=== PATIENT | male | born 1945 | race Caucasian/White ===

== ENCOUNTER 2018-05-11 14:13 | Emergency (ER) | payer SELFPAY ==
[~2018-05-11] VITALS: Ht 175.3 cm; Wt 90.7 kg
--- NOTE | 2018-05-11 14:25 | NUR ---
PATIENT CAME FROM HOME C/O SYNCOPAL EPISODE, WITH CHANGE IN LOC APPROX. 1 MIN. PATIENT A/OX4, BREATHING EVEN AND UNLABORED, NO SOB NOTED, CAME IN WITH LEFT HAND G18 HL. NEEDS ATTENDED, AWAITING FOR MD ZAMBRANO.
[2018-05-11] MEDS ORDERED: IV NS 0.9% 1,000 ML BAG IV ONE ×2 (14:30→16:30)
[2018-05-11 14:38] LABS: BASOPHILS # (AUTO) 0.1 /CMM (0.0-0.2); BASOPHILS % (AUTO) 0.9 % (0.0-2.0); EOSINOPHILS % (AUTO) 2.7 % (0.0-6.0); HEMATOCRIT 39 % (39-51); HEMOGLOBIN 13.2 g/dL (13.5-17.5); LYMPHOCYTES # (AUTO) 1.4 /CMM (0.8-4.8); LYMPHOCYTES % (AUTO) 21.7 % (20.0-44.0); MEAN CORPUSCULAR HGB CONC 34 g/dl (31.0-36.0); MEAN CORPUSCULAR VOLUME 91 fL (80-96); MONOCYTES # (AUTO) 0.6 /CMM (0.1-1.30); MONOCYTES % (AUTO) 9.7 % (2.0-12.0); NEUTROPHILS # (AUTO) 4.3 /CMM (1.8-8.9); PLATELET COUNT (AUTO) 217 /CMM (150-450); RED BLOOD CELL COUNT(AUTO) 4.29 MIL/uL (4.5-6.0); WHITE BLOOD COUNT (AUTO) 6.6 K/uL (4.3-11.0)
[2018-05-11 14:52] LABS: ALCOHOL, BLOOD < 3 mg/dL (0-0)
[2018-05-11 14:53] LABS: CARBON DIOXIDE 26 mmol/L (21-32); CHLORIDE 105 mmol/L (98-107); CREATININE 1.3 mg/dL (0.6-1.3); GLUCOSE 108 mg/dL (74-106); POTASSIUM 3.8 mmol/L (3.5-5.1); SODIUM SERUM 141 mmol/L (136-145); UREA NITROGEN, BLOOD 30 mg/dL (7-18)
[2018-05-11 15:08] LABS: ALANINE AMINOTRANSFERASE 30 U/L (12-78); ALBUMIN 3.6 g/dL (3.4-5.0); ALKALINE PHOSPHATASE 77 U/L (46-116); ASPARTATE AMINOTRANSFERASE 23 U/L (15-37); BILIRUBIN,DIRECT 0.2 mg/dL (0.0-0.2); BILIRUBIN,TOTAL 1.1 mg/dL (0.2-1.0); TOTAL PROTEIN, SERUM 6.7 g/dL (6.4-8.2)
[2018-05-11] MEDS ORDERED: ATOR10TA PO (15:08)
[2018-05-11] MEDS ORDERED: IV NS 0.9% 1,000 ML IV ONE (16:00)
--- NOTE | 2018-05-11 16:15 | NUR ---
UNABLE TO ADMINISTER NS, 2ND LITER OF NS STARTED AT 1550.
--- NOTE | 2018-05-11 17:58 | NUR ---
Patient discharged to home in stable condition. Written and verbal after care instructions given. Patient verbalizes understanding of instruction.
[2018-05-11 17:59] VITALS: BP 126/78
== END 2018-05-11 18:01 | disposition home or self-care (01) ==
LOC: ER 14:15
DX: R55 Syncope and collapse (principal); E87.2 Acidosis; E86.0 Dehydration; I10 Essential (primary) hypertension; Z79.899 Other long term (current) drug therapy
CPT/HCPCS: 36415; 71045; 80048; 80076; 80307; 83605 ×2; 83735; 84484; 85025; 85730; 87040 ×2; 93005; 96360; 96361; 99284; J7030 ×2; G0480